=== PATIENT | female | born 1995 ===

== ENCOUNTER 2017-01-09 18:48 | Emergency (ER) | payer BC ==
[2017-01-09 19:01] VITALS: TEMP 98.6
--- NOTE | 2017-01-09 19:42 | C.PDOC ---
History Of Present Illness 21 y/o female presents to the ED requesting test. Pt reports positive home test but wants to confirm it. Pt . Pt denies significant complaints , denies previous hx of , miscarriage, ectopic , abdominal pain, vomiting, vaginal irritation or bleeding, vaginal discharge, fever or any other complaints. Ambulate to ED for evaluation, not in any apparent distress. Time Seen by Provider: 01/09/17 19:15 Chief Complaint (Nursing): Medical Clearance History Per: Patient History/Exam Limitations: no limitations Severity: None Recent travel outside of the [place]: No Past Medical History Reviewed: Historical Data, Nursing Documentation, Vital Signs Vital Signs: Last Vital Signs Temp 98.6 F 01/09/17 18:58 Pulse 114 H 01/09/17 18:58 Resp 20 01/09/17 18:58 BP 122/81 01/09/17 18:58 Pulse Ox 100 01/09/17 19:43 Family History: States: Unknown Family Hx - Social History Hx Alcohol Use: No Hx Substance Use: No - Immunization History Hx Tetanus Toxoid Vaccination: No Hx Influenza Vaccination: No Hx Pneumococcal Vaccination: No Review Of Systems Except As Marked, All Systems Reviewed And Found Negative. Constitutional: Negative for: Fever, Chills Gastrointestinal: Negative for: Vomiting, Abdominal Pain Genitourinary: Negative for: Vaginal Discharge, Vaginal Bleeding Physical Exam - Physical Exam Appears: Well, Non-toxic, No Acute Distress Skin: Warm, Dry, No Rash Head: Normacephalic Eye(s): bilateral: Normal Inspection Nose: Normal Throat: Normal, No Erythema, No Exudate, No Drooling Neck: Normal, Normal ROM, Supple Cardiovascular: Rhythm Regular Respiratory: Normal Breath Sounds, No Rales, No Rhonchi, No Stridor, No Wheezing Gastrointestinal/Abdominal: Normal Exam, Soft, No Tenderness, No Distention, No Guarding, No Rebound Back: Normal Inspection, No CVA Tenderness Extremity: Normal ROM, No Pedal Edema Extremity: Bilateral: Atraumatic Neurological/Psych: Oriented x3, Normal Speech ED Course And Treatment - Laboratory Results Urine POC: Positive O2 Sat by Pulse Oximetry: 100 (on room air) Pulse Ox Interpretation: Normal Progress Note: Urine is positive for . Pt has no active complaints at present time. pt is afebrile, hemodynamicaly stable. Non-toxic. Tolerate Po well in Ed. Abd: benign. back: (-) CVA tenderness. Educate pt on normal course of 1st trimester of . Counseled on signs of threatned / miscarriage, ectopic. Pt referred to [facility] clinic for follow up care. Disposition Counseled Patient/Family Regarding: Studies Performed, Diagnosis, Need For Followup, Rx Given - [facility]position [facility] Disposition: HOME/ ROUTINE Disposition Time: 19:20 Condition: STABLE Additional Instructions: Follow up with OB in 2-3 days for re-evaluation. Return to ED if any worsening or new changes. Prescriptions: Multivit/Folic Acid/I [ Plus] 1 tab PO DAILY #30 tab Instructions: (ED) Print Language: JAPANESE - Clinical Impression Clinical Impression: - PA / STUDENT MINISTRY PASTOR / Resident Statement MD/DO has reviewed & agrees with the documentation as recorded. - Scribe Statement The provider has reviewed the documentation as recorded by the Janny Carrero All medical record entries made by the Abeibe were at my direction and personally dictated by me. I have reviewed the chart and agree that the record accurately reflects my personal performance of the history, physical exam, medical decision making, and the department course for this patient. I have also personally directed, reviewed, and agree with the discharge instructions and disposition.
[2017-01-09 20:09] VITALS: BP 132/78; PULSE 70; RESP 16; O2SAT 98
== END 2017-01-09 20:09 | disposition home or self-care (01) ==
LOC: C.ER 18:48
DX: Z32.01 Encounter for pregnancy test, result positive (principal)

== ENCOUNTER 2017-01-25 19:10 | Emergency (ER) | payer BC ==
[2017-01-25 19:25] VITALS: O2SAT 98
--- NOTE | 2017-01-25 20:44 | C.PDOC ---
History Of Present Illness Patient presents to the ED with complaints of feeling lightheaded and mild abdominal cramping. Patient is . Patient denies any nausea, vomiting, chest pain, or palpitations. Time Seen by Provider: 01/25/17 20:44 Chief Complaint (Nursing): Dizziness/Lightheaded History Per: Patient History/Exam Limitations: no limitations Onset/Duration Of Symptoms: Hrs Current Symptoms Are (Timing): Still Present Severity: Mild Pain Scale Rating Of: 4 Recent travel outside of the [place]: No Past Medical History Reviewed: Historical Data, Nursing Documentation, Vital Signs Vital Signs: Last Vital Signs Temp 98.0 F 01/25/17 19:20 Pulse 75 01/25/17 19:20 Resp 16 01/25/17 19:20 BP 108/73 01/25/17 19:20 Pulse Ox 98 01/25/17 21:12 Family History: States: No Known Family Hx - Social History Hx Alcohol Use: No Hx Substance Use: No - Immunization History Hx Tetanus Toxoid Vaccination: No Hx Influenza Vaccination: No Hx Pneumococcal Vaccination: No Review Of Systems Constitutional: Negative for: Fever, Chills Cardiovascular: Negative for: Chest Pain, Palpitations Gastrointestinal: Negative for: Nausea, Vomiting Neurological: Positive for: Other (lightheadedbess ) Physical Exam - Physical Exam Appears: Non-toxic, No Acute Distress Skin: Warm, Dry Eye(s): bilateral: PERRL, EOMI Neck: Supple Cardiovascular: Rhythm Regular Respiratory: No Accessory Muscle Use, No Rales, No Rhonchi, No Stridor, No Wheezing Gastrointestinal/Abdominal: Soft, No Tenderness, No Distention, No Guarding, No Rebound Extremity: Normal ROM, No Tenderness Neurological/Psych: Oriented x3 ED Course And Treatment - Laboratory Results Result Diagrams: 01/25/17 21:01 01/25/17 21:01 O2 Sat by Pulse Oximetry: 98 Pulse Ox Interpretation: Normal Reevaluation Time: 23:29 Reassessment Condition: Improved Disposition Counseled Patient/Family Regarding: Studies Performed, Diagnosis, Need For Followup - Disposition Referrals: [facility] [Outside] [facility] [Outside] Disposition: HOME/ ROUTINE Disposition Time: 20:44 Condition: FAIR Prescriptions: Nitrofurantoin Macrocrystals [Macrobid] 1 cap PO BID #14 cap Instructions: (ED), Dehydration (DC), Urinary Tract Infection in (ED) Print Language: BULGARIAN - Clinical Impression Clinical Impression: , Dehydration, UTI (urinary tract infection) during - Scribe Statement The provider has reviewed the documentation as recorded by the Scribe Martina Guido All medical record entries made by the Abeibe were at my direction and personally dictated by me. I have reviewed the chart and agree that the record accurately reflects my personal performance of the history, physical exam, medical decision making, and the department course for this patient. I have also personally directed, reviewed, and agree with the discharge instructions and disposition.
[2017-01-25 21:08] LABS: BASO % 0.3 % (0.0-2.0); EOS % 0.5 % (0.0-4.0); HEMATOCRIT 39.9 % (34.0-47.0); LYMPH # 1.7 K/uL (1.0-4.3); LYMPH % 15.5 % (20.0-40.0); MEAN CELL VOLUME 84.9 fL (81.0-99.0); MEAN CORPUSCULAR HEMOGLOBIN 27.2 pg (27.0-31.0); MEAN PLATELET VOLUME 8.1 fL (7.2-11.7); MONO # 0.8 K/uL (0.0-0.8); RED CELL DISTRIBUTION WIDTH 14.1 % (11.5-14.5); WHITE BLOOD COUNT 10.8 K/uL (4.8-10.8)
[2017-01-25 21:18] LABS: CHLORIDE 98 mmol/L (98-107); SODIUM 134 mmol/L (132-148)
[2017-01-25 21:19] LABS: POTASSIUM 4.7 mmol/L (3.6-5.2)
[2017-01-25 21:21] LABS: ALKALINE PHOSPHATASE 49 U/L (38-126); ALT/SGPT 208 U/L (9-52); AST/SGOT 141 U/L (14-36); BILIRUBIN,TOTAL 1.2 mg/dL (0.2-1.3); BLOOD UREA NITROGEN 8 mg/dL (7-17); CALCIUM 8.7 mg/dl (8.6-10.4); CARBON DIOXIDE 22 mmol/L (22-30); GFR AFRICAN-AMERICAN > 60; GLUCOSE,RANDOM 78 mg/dL (65-105); TOTAL PROTEIN 8.6 g/dL (6.3-8.3)
[2017-01-25] MEDS ORDERED: Sodium Chloride 0.9% 2,000 ML IV ONE (21:53)
[2017-01-25 22:02] LABS: RBC URINE 3 /hpf (0-3); URINE BACTERIA FEW (<OCC); URINE BILIRUBIN NEGATIVE (NEGATIVE); URINE BLOOD NEGATIVE (NEGATIVE); URINE GLUCOSE (UA) NORMAL (Normal); URINE KETONE 2+ mg/dL (NEGATIVE); URINE LEUKOCYTE ESTERASE 2+ Leu/uL (Negative); URINE PROTEIN 2+ mg/dL (NEGATIVE); WBC URINE 36 /hpf (0-5)
[2017-01-25 22:04] LABS: URINE COLOR YELLOW (YELLOW)
[2017-01-25 23:39] LABS: INR 1.1
[2017-01-25 23:46] VITALS: BP 95/62; PULSE 83; RESP 18; TEMP 98.9
--- NOTE | 2017-01-26 17:23 | US ---
OB ultrasound 01/25/2017 Transabdominal- transvaginal sonographic evaluation of the uterus performed. Findings: Uterus is anteverted measuring approximately 8.9 x 5.6 x 6.8 Cm. Cervix is closed measuring 3.2 cm. Intrauterine gestational sac: Gestational sac: MSD 2.65 cm = 7 weeks 3 days Yolk sac: .25cm pole: 1.27 cm = 7weeks 3 days Average ultrasound age = 7 weeks 3 days +/-0 weeks 4 days Heart motion: 152 BPM Right ovary measures 3.9 x 1.7 x 2.5 cm right ovary exhibits arterial flow Left ovary measures 2.7 x 2.3 x 2.5 cm . Impression: Single living intrauterine gestation at approximately 7 weeks 3 days +/-0 weeks 4 days
== END 2017-01-25 23:45 | disposition home or self-care (01) ==
LOC: C.ER 19:10
DX: O23.41 Unspecified infection of urinary tract in pregnancy, first trimester (principal); O26.891 Other specified pregnancy related conditions, first trimester; E86.0 Dehydration; Z3A.01 Less than 8 weeks gestation of pregnancy
CPT/HCPCS: 76805; 76817; 80053; 81001; 84702; 84703; 85025; 85610; 85730; 86850; 86900; 96361; 96374; 99285; J2405; J7040

== ENCOUNTER 2017-01-28 21:01 | Emergency (ER) | payer BC ==
--- NOTE | 2017-01-28 22:28 | C.PDOC ---
History Of Present Illness Patient presents to the ED complaining of vomiting since yesterday. Patient is 7 weeks ; 1 para 0. She was seen in the ED on 01/25/17 for similar symptoms and was started on Macrobid. Patient denies fever, abdominal pain, diarrhea, back pain, urinary symptoms, vaginal bleeding or discharge. Time Seen by Provider: 01/28/17 22:28 Chief Complaint (Nursing): GI Problem History Per: Patient History/Exam Limitations: no limitations Onset/Duration Of Symptoms: Days (1) Current Symptoms Are (Timing): Still Present Context: Other Severity: Mild Pain Scale Rating Of: 3 Radiation Of Pain To:: None Quality Of Discomfort: "Pain" Associated Symptoms: Vomiting Exacerbating Factors: None Alleviating Factors: None Last Bowel Movement: Today Recent travel outside of the [place]: No Additional History Per: Patient Abnormal Vaginal Bleeding: No : 1 Para: 0 Past Medical History Reviewed: Historical Data, Nursing Documentation, Vital Signs Vital Signs: Last Vital Signs Temp 98.8 F 01/28/17 23:41 Pulse 74 01/28/17 23:41 Resp 18 01/28/17 23:41 BP 95/59 L 01/28/17 23:41 Pulse Ox 98 01/28/17 23:41 Family History: States: No Known Family Hx - Social History Hx Alcohol Use: No Hx Substance Use: No - Immunization History Hx Tetanus Toxoid Vaccination: No Hx Influenza Vaccination: No Hx Pneumococcal Vaccination: No Review Of Systems Constitutional: Negative for: Fever Gastrointestinal: Positive for: Vomiting. Negative for: Abdominal Pain, Diarrhea Genitourinary: Negative for: Dysuria, Vaginal Discharge, Vaginal Bleeding Musculoskeletal: Negative for: Back Pain Physical Exam - Physical Exam Appears: Non-toxic, No Acute Distress Skin: Warm, Dry Head: Atraumatic, Normacephalic Eye(s): bilateral: EOMI Oral Mucosa: Moist Neck: Supple Chest: Symmetrical Cardiovascular: Rhythm Regular Respiratory: No Rales, No Rhonchi, No Wheezing Gastrointestinal/Abdominal: Soft, No Guarding, No Rebound, Other (mild suprapubic discomfort) Back: No CVA Tenderness Extremity: Bilateral: Atraumatic, Normal Color And Temperature Neurological/Psych: Oriented x3, Normal Speech, Normal Cognition Gait: Steady ED Course And Treatment - Laboratory Results Result Diagrams: 01/28/17 22:42 01/28/17 22:42 O2 Sat by Pulse Oximetry: 100 (room air) Pulse Ox Interpretation: Normal Progress Note: Plan: -Macrobid, Reglan, IV fluids. -Labs Reevaluation Time: 00:49 Reassessment Condition: Improved Disposition Counseled Patient/Family Regarding: Studies Performed, Diagnosis, Need For Followup, Rx Given - Disposition Referrals: [facility] [Outside] [facility] [Outside] Disposition: HOME/ ROUTINE Disposition Time: 22:28 Condition: FAIR Additional Instructions: Please finish the antibiotics for the urinary tract infection Prescriptions: Metoclopramide [Reglan] 1 tab PO TID PRN #25 tab PRN Reason: Nausea/Vomiting Instructions: Hyperemesis Gravidarum (ED), Urinary Tract Infection in (ED) Print Language: ESTONIAN - Clinical Impression Clinical Impression: UTI (urinary tract infection) during , Hyperemesis gravidarum - Scribe Statement The provider has reviewed the documentation as recorded by the Abeibalvaro Bardales Provider Attestation: All medical record entries made by the Abeibalvaro were at my direction and personally dictated by me. I have reviewed the chart and agree that the record accurately reflects my personal performance of the history, physical exam, medical decision making, and the department course for this patient. I have also personally directed, reviewed, and agree with the discharge instructions and disposition.
[2017-01-28 22:29] VITALS: BMI 33.6
[2017-01-28] MEDS ORDERED: Sodium Chloride 0.9% 1,000 ML IV ONE (22:29)
[2017-01-28] MEDS ORDERED: Sodium Chloride 0.9% 1,000 ML ONE (22:43)
[2017-01-28 22:48] LABS: BASO % 0.4 % (0.0-2.0); EOS % 0.2 % (0.0-4.0); HEMATOCRIT 38.1 % (34.0-47.0); LYMPH # 1.4 K/uL (1.0-4.3); LYMPH % 12.3 % (20.0-40.0); MEAN CORPUSCULAR HEMOGLOBIN 27.4 pg (27.0-31.0); MEAN CORPUSCULAR HGB CONC 32.6 g/dL (33.0-37.0); MEAN PLATELET VOLUME 7.8 fL (7.2-11.7); MONO # 0.8 K/uL (0.0-0.8); MONO % 7.2 % (0.0-10.0); RED CELL DISTRIBUTION WIDTH 13.7 % (11.5-14.5); WHITE BLOOD COUNT 11.2 K/uL (4.8-10.8)
[2017-01-28 22:55] LABS: RBC URINE 8 /hpf (0-3); URINE BACTERIA MOD (<OCC); URINE BILIRUBIN NEGATIVE (NEGATIVE); URINE COLOR Amber (YELLOW); URINE GLUCOSE (UA) NORMAL (Normal); URINE HYALINE CAST 0-2 /lpf (0-2); URINE KETONE 2+ mg/dL (NEGATIVE); URINE PROTEIN 2+ mg/dL (NEGATIVE); WBC URINE 17 /hpf (0-5)
[2017-01-28 22:57] LABS: CHLORIDE 98 mmol/L (98-107); POTASSIUM 4.1 mmol/L (3.6-5.2); SODIUM 134 mmol/L (132-148); URINE BLOOD 1+ (NEGATIVE); URINE LEUKOCYTE ESTERASE 2+ Leu/uL (Negative)
[2017-01-28 22:59] LABS: ALB/GLOB RATIO 1.1 (1.0-2.1); ALKALINE PHOSPHATASE 50 U/L (38-126); AST/SGOT 32 U/L (14-36); BILIRUBIN,TOTAL 1.1 mg/dL (0.2-1.3); BLOOD UREA NITROGEN 7 mg/dL (7-17); CARBON DIOXIDE 24 mmol/L (22-30); GFR AFRICAN-AMERICAN > 60; TOTAL PROTEIN 8.1 g/dL (6.3-8.3)
[2017-01-28 23:00] LABS: ALT/SGPT 109 U/L (9-52); CALCIUM 8.9 mg/dl (8.6-10.4); GLUCOSE,RANDOM 88 mg/dL (65-105)
[2017-01-28] MEDS ORDERED: Sodium Chloride 0.9% 50 ML IV ONE (23:09)
[2017-01-28 23:42] VITALS: BP 95/59; RESP 18
[2017-01-29 00:54] VITALS: O2SAT 100
[2017-01-29 01:11] VITALS: PULSE 65; TEMP 98.9
== END 2017-01-29 01:05 | disposition home or self-care (01) ==
LOC: C.ER 21:01
DX: O23.41 Unspecified infection of urinary tract in pregnancy, first trimester (principal); Z3A.01 Less than 8 weeks gestation of pregnancy; O21.0 Mild hyperemesis gravidarum
CPT/HCPCS: 80053; 81001; 83690; 85025; 96361; 96374; 99285; J2765; J7040

== ENCOUNTER 2017-02-16 18:53 | Emergency (ER) | payer SELFPAY ==
[2017-02-16 18:53] VITALS: BMI 33.6
[2017-02-16 19:01] VITALS: O2SAT 99
[2017-02-16] MEDS ORDERED: Sodium Chloride 0.9% 1,000 ML IV ONE (19:25)
[2017-02-16] MEDS ORDERED: Sodium Chloride 0.9% 500 ML IV ONE (19:25)
--- NOTE | 2017-02-16 19:32 | C.PDOC ---
History Of Present Illness A 21 y/o female who is 13 weeks presents to the ER c/o abdominal pain for 3 days. Patient notes nausea and vomiting but denies fever, chills, diarrhea , vaginal discharge, dysuria, hematuria, or any other complaints. Chief Complaint (Nursing): Abdominal Pain History Per: Patient History/Exam Limitations: no limitations Onset/Duration Of Symptoms: Days Current Symptoms Are (Timing): Still Present Severity: Mild Location Of Pain/Discomfort: RUQ, RLQ Associated Symptoms: Nausea, Vomiting. denies: Diarrhea Additional History Per: Patient Past Medical History Reviewed: Historical Data, Nursing Documentation, Vital Signs Vital Signs: Last Vital Signs Temp 98 F 02/16/17 18:58 Pulse 80 02/16/17 18:58 Resp 18 02/16/17 18:58 BP 118/77 02/16/17 18:58 Pulse Ox 99 02/16/17 19:36 Family History: States: Unknown Family Hx - Social History Hx Alcohol Use: No Hx Substance Use: No - Immunization History Hx Tetanus Toxoid Vaccination: No Hx Influenza Vaccination: No Hx Pneumococcal Vaccination: No Review Of Systems Except As Marked, All Systems Reviewed And Found Negative. Constitutional: Negative for: Fever, Chills Gastrointestinal: Positive for: Nausea, Vomiting, Abdominal Pain (Right sided abdominal pain). Negative for: Diarrhea Genitourinary: Negative for: Dysuria, Hematuria, Vaginal Discharge Physical Exam - Physical Exam Appears: Non-toxic, In Acute Distress (Mild distress) Skin: Warm, Dry Head: Atraumatic, Normacephalic Eye(s): bilateral: Normal Inspection, EOMI Cardiovascular: Rhythm Regular, No Murmur Respiratory: Normal Breath Sounds, No Rales, No Rhonchi, No Wheezing Gastrointestinal/Abdominal: Soft, Tenderness (RUQ and RLQ. No epigastric tendernes), No Guarding, No Rebound Pelvic: No Vaginal Bleeding, No Vaginal Discharge Neurological/Psych: Oriented x3, Normal Speech, Normal Cognition ED Course And Treatment - Laboratory Results Result Diagrams: 02/16/17 19:43 02/16/17 19:43 O2 Sat by Pulse Oximetry: 99 (RA) Pulse Ox Interpretation: Normal Medical Decision Making Medical Decision Making: Impression: 21 y/o 13 weeks female c/o abdominal pain for 3 days Plans: -Blood labs -Pepcid -Zofran -IV fluids -UA -US abd -Reassess and disposition Patient is resting comfortably, abdomen remains soft, and patient is tolerating PO. Patient feels comfortable going home. Patient will be discharged home. Disposition Counseled Patient/Family Regarding: Diagnosis - Disposition Referrals: [facility] [Outside] Disposition: HOME/ ROUTINE Disposition Time: 22:06 Condition: STABLE Prescriptions: Acetaminophen [Tylenol 325mg tab] 650 mg PO Q4 #30 tab Ondansetron ODT [Zofran ODT] 1 odt PO BID PRN #6 odt PRN Reason: Nausea/Vomiting Instructions: Gallstones (ED), Biliary Colic (GEN), (ED) Forms: Gen Discharge Inst Sami Print Language: STATELESS - POA Present On Arrival: None - Clinical Impression Clinical Impression: Abdominal pain, Gall bladder stones, Gall bladder pain, - Scribe Statement The provider has reviewed the documentation as recorded by the Scribe Candace ritchie All medical record entries made by the Scribe were at my direction and personally dictated by me. I have reviewed the chart and agree that the record accurately reflects my personal performance of the history, physical exam, medical decision making, and the department course for this patient. I have also personally directed, reviewed, and agree with the discharge instructions and disposition.
[2017-02-16 19:46] LABS: BASO % 0.3 % (0.0-2.0); EOS % 0.3 % (0.0-4.0); HEMATOCRIT 40.3 % (34.0-47.0); LYMPH % 12.6 % (20.0-40.0); MEAN CELL VOLUME 84.6 fL (81.0-99.0); MEAN CORPUSCULAR HEMOGLOBIN 27.4 pg (27.0-31.0); MEAN CORPUSCULAR HGB CONC 32.4 g/dL (33.0-37.0); MEAN PLATELET VOLUME 7.7 fL (7.2-11.7); MONO # 0.7 K/uL (0.0-0.8); MONO % 8.3 % (0.0-10.0); WHITE BLOOD COUNT 8.1 K/uL (4.8-10.8)
[2017-02-16] MEDS ORDERED: Sodium Chloride 0.9% 2,000 ML ONE (19:55)
[2017-02-16 20:03] LABS: CHLORIDE 96 mmol/L (98-107); POTASSIUM 3.7 mmol/L (3.6-5.2); SODIUM 135 mmol/L (132-148)
[2017-02-16 20:05] LABS: AST/SGOT 94 U/L (14-36); BILIRUBIN,TOTAL 2.5 mg/dL (0.2-1.3); CARBON DIOXIDE 24 mmol/L (22-30); GFR AFRICAN-AMERICAN > 60; TOTAL PROTEIN 8.5 g/dL (6.3-8.3)
[2017-02-16 20:06] LABS: ALKALINE PHOSPHATASE 64 U/L (38-126); ALT/SGPT 179 U/L (9-52); BLOOD UREA NITROGEN 8 mg/dL (7-17); CALCIUM 9.2 mg/dl (8.6-10.4); GLUCOSE,RANDOM 85 mg/dL (65-105)
[2017-02-16 22:26] VITALS: BP 118/78; PULSE 89; RESP 20; TEMP 98.4
--- NOTE | 2017-02-17 11:27 | US ---
PROCEDURE: OB Pelvic Ultrasound HISTORY: 10 weeks bed 13 COMPARISON: Comparison is made to the previous study dated 01/25/2017 FINDINGS: LMP: 12/04/2016 UTERUS: Gestational sac: Single intrauterine gestation. Heart rate: 171 bpm. age (Ultrasound estimated): In 9 weeks 6 days +/- 0 weeks 5 days Tawnya-gestational hemorrhage: None. Date of delivery (Ultrasound estimated) : 09/15/2017 Uterus measures 9.8 x 7.2 x 7.9 cm. Normal in size and appearance. The cervix closed measures 3.9 centimeter. CERVIX: Long and closed. No cervical abnormality seen. RIGHT OVARY: Was not visualized. LEFT OVARY: Measures 2.9 x 2 x 3.1 cm. No solid mass. Normal flow. FREE FLUID: None. OTHER FINDINGS: None. IMPRESSION: Single intrauterine live with ultrasound estimated gestational age of 9 weeks 6 days +/- 0 weeks 5 days. Estimated date of delivery by ultrasound is 09/15/2017. The right ovary was not visualized in this study. Preliminary report was submitted by [facility].
--- NOTE | 2017-02-17 11:30 | US ---
HISTORY: Upper abd and RLQ abdominal pain COMPARISON: None. TECHNIQUE: Sonographic evaluation of the abdomen. FINDINGS: LIVER: Measures 15 cm. Heterogeneous mild increase echogenicity of the liver parenchyma. No mass. No intrahepatic bile duct dilatation. GALLBLADDER: Cholelithiasis without evidence of acute cholecystitis. COMMON BILE DUCT: Measures 2.4 mm. No stones. No dilatation. PANCREAS: Unremarkable as visualized. No mass. No ductal dilatation. RIGHT KIDNEY: Measures 9.9 x 3.6 x 4.2cm. Normal echogenicity. No calculus, mass, or hydronephrosis. LEFT KIDNEY: Measures 10.3 x 4.6 x 3.9cm. Normal echogenicity. No calculus, mass, or hydronephrosis. SPLEEN: Normal in size and contour. No mass. AORTA: No aneurysmal dilatation. IVC: Unremarkable. OTHER FINDINGS: None. IMPRESSION: Cholelithiasis without ultrasound evidence of acute cholecystitis. Mildly echogenic liver suggestive of mild steatosis. Preliminary report was submitted by [facility].
== END 2017-02-16 22:26 | disposition home or self-care (01) ==
LOC: C.ER 18:53
DX: O26.91 Pregnancy related conditions, unspecified, first trimester (principal); Z3A.09 9 weeks gestation of pregnancy; K80.20 Calculus of gallbladder without cholecystitis without obstruction; R10.9 Unspecified abdominal pain
CPT/HCPCS: 76700; 76801; 80053; 83690; 84702; 85025; 96361; 96374; 96375; 99284; J2405; J7040

== ENCOUNTER 2017-02-28 20:30 | Emergency (ER) | payer SELFPAY ==
[2017-02-28 20:30] VITALS: BMI 33.6
[2017-02-28 20:52] VITALS: RESP 18; O2SAT 100
[2017-02-28] MEDS ORDERED: Sodium Chloride 0.9% 1,000 ML IV ONE (21:21)
[2017-02-28 21:30] LABS: RBC URINE 7 /hpf (0-3); TRANSITIONAL EPITHIAL < 1 /hpf (0-3); URINE BACTERIA RARE (<OCC); URINE BILIRUBIN 1+ (NEGATIVE); URINE BLOOD 1+ (NEGATIVE); URINE COLOR Amber (YELLOW); URINE GLUCOSE (UA) NORMAL (Normal); URINE HYALINE CAST 0-2 /lpf (0-2); URINE KETONE 2+ mg/dL (NEGATIVE); URINE LEUKOCYTE ESTERASE 2+ Leu/uL (Negative); URINE PROTEIN 2+ mg/dL (NEGATIVE); WBC URINE 20 /hpf (0-5)
[2017-02-28 21:36] LABS: BASO % 0.3 % (0.0-2.0); EOS % 0.4 % (0.0-4.0); LYMPH # 0.5 K/uL (1.0-4.3); LYMPH % 11.9 % (20.0-40.0); MEAN CELL VOLUME 83.7 fL (81.0-99.0); MEAN CORPUSCULAR HEMOGLOBIN 28.2 pg (27.0-31.0); MEAN CORPUSCULAR HGB CONC 33.7 g/dL (33.0-37.0); MONO # 0.5 K/uL (0.0-0.8); MONO % 11.6 % (0.0-10.0); NRBC % 0.1 % (0.0-2.0); RED CELL DISTRIBUTION WIDTH 14.5 % (11.5-14.5); WHITE BLOOD COUNT 4.3 K/uL (4.8-10.8)
[2017-02-28] MEDS ORDERED: Sodium Chloride 0.9% 1,000 ML ONE (21:37)
--- NOTE | 2017-02-28 21:37 | C.PDOC ---
History Of Present Illness 21 y/o female presents to the ED with complains of RUQ discomfort x2 days. Pt , history of biliary colic and gallstones. Pt seen here 02/16/17, normal noted on US showing IUP 9 weeks 6 days. Denies fever, chills, vomiting , diarrhea or any other complaints. Time Seen by Provider: 02/28/17 21:14 Chief Complaint (Nursing): GI Problem History Per: Patient History/Exam Limitations: no limitations Onset/Duration Of Symptoms: Days Current Symptoms Are (Timing): Still Present Severity: Mild Quality Of Discomfort: "Pain" Associated Symptoms: denies: Fever, Chills, Nausea, Vomiting Alleviating Factors: None Recent travel outside of the [place]: No Abnormal Vaginal Bleeding: No Past Medical History Reviewed: Historical Data, Nursing Documentation, Vital Signs Vital Signs: Last Vital Signs Temp 99.1 F 02/28/17 20:49 Pulse 72 02/28/17 20:49 Resp 18 02/28/17 20:49 BP 115/56 L 02/28/17 20:49 Pulse Ox 100 02/28/17 21:38 Family History: States: Unknown Family Hx - Social History Hx Alcohol Use: No Hx Substance Use: No - Immunization History Hx Tetanus Toxoid Vaccination: No Hx Influenza Vaccination: No Hx Pneumococcal Vaccination: No Review Of Systems Except As Marked, All Systems Reviewed And Found Negative. Constitutional: Negative for: Fever, Chills Gastrointestinal: Positive for: Abdominal Pain. Negative for: Nausea, Vomiting , Diarrhea Genitourinary: Negative for: Vaginal Discharge, Vaginal Bleeding Physical Exam - Physical Exam Appears: Non-toxic, No Acute Distress, Other (obese female) Skin: Warm, Dry, No Rash Head: Atraumatic, Normacephalic Neck: Normal, Normal ROM, Supple Chest: Symmetrical Cardiovascular: Rhythm Regular, No Murmur Respiratory: Normal Breath Sounds, No Rales, No Rhonchi, No Wheezing Gastrointestinal/Abdominal: Normal Exam, Soft, No Tenderness Extremity: Bilateral: Atraumatic Neurological/Psych: Oriented x3, Normal Speech ED Course And Treatment - Laboratory Results Result Diagrams: 02/28/17 21:28 02/28/17 21:28 Lab Interpretation: Abnormal (mild elev LFT's. total bili 1.4, UA 20 WBC's) Urine POC: Positive O2 Sat by Pulse Oximetry: 100 (room air) Pulse Ox Interpretation: Normal - Other Rad GB US X-Ray: Interpreted by Me (GB stones, no obst/thickening, no sonographic callejas's ), Read By Radiologist Reevaluation Time: 22:36 Reassessment Condition: Improved Medical Decision Making Medical Decision Making: consider passed stone (but alk phos would be elev and CBD would be dilated) or fatty liver or constipation UTI in preg preg US not repeated as normal IUP 02/16 @ 9W6D and no lower abd discomforts. Disposition Doctor Will See Patient In The: Office Counseled Patient/Family Regarding: Studies Performed, Diagnosis - Disposition Referrals: Poly Anderson MD [Primary Care Provider] - Disposition Time: 22:37 Condition: GOOD - Clinical Impression Clinical Impression: UTI (urinary tract infection) during , with epigastric pain , antepartum - Scribe Statement The provider has reviewed the documentation as recorded by the Janny Carrero Provider Attestation: All medical record entries made by the Janny were at my direction and personally dictated by me. I have reviewed the chart and agree that the record accurately reflects my personal performance of the history, physical exam, medical decision making, and the department course for this patient. I have also personally directed, reviewed, and agree with the discharge instructions and disposition.
[2017-02-28 21:43] LABS: CHLORIDE 95 mmol/L (98-107); SODIUM 131 mmol/L (132-148)
[2017-02-28 21:45] LABS: AST/SGOT 105 U/L (14-36); BILIRUBIN,TOTAL 1.4 mg/dL (0.2-1.3); CARBON DIOXIDE 24 mmol/L (22-30); GFR AFRICAN-AMERICAN > 60
[2017-02-28 21:46] LABS: ALB/GLOB RATIO 1.1 (1.0-2.1); ALKALINE PHOSPHATASE 73 U/L (38-126); ALT/SGPT 236 U/L (9-52); BLOOD UREA NITROGEN 6 mg/dL (7-17); CALCIUM 8.8 mg/dl (8.6-10.4); GLUCOSE,RANDOM 86 mg/dL (65-105); TOTAL PROTEIN 7.9 g/dL (6.3-8.3)
[2017-02-28 22:51] VITALS: BP 102/64; PULSE 68; TEMP 98.3
--- NOTE | 2017-03-01 07:00 | US ---
Right upper quadrant abdominal ultrasound History: Right upper quadrant abdominal pain. Comparison: None available. Technique: Real-time sonography was performed through the right upper quadrant of the abdomen. Findings: Liver: 15 centimeters length. Mild increased echogenicity of the hepatic parenchyma suggestive for mild fatty infiltration versus mild hepatic parenchymal disease. Clinical correlation. Gallbladder: Cholelithiasis. Normal wall thickness of 2 millimeters. No wall edema. Negative sonographic Terrazas's sign. Common bile duct measures 2.1 millimeters, within normal limits. Limited visualization of the pancreas. Visualized aorta and IVC are preserved. Right kidney: 9.5 x 3.6 x 5.2 centimeters. No calculi or hydronephrosis. Impression: Cholelithiasis. Normal wall thickness of 2.0 millimeters. Negative sonographic Terrazas's sign. Mild increased echogenicity of the hepatic parenchyma which may represent mild fatty infiltration versus hepatic parenchymal disease. Clinical correlation. Limited visualization of the pancreas. These findings were preliminarily reported at 10:52 p.m. on 02/28/[address] Josefa Dominguez from [facility].
== END 2017-02-28 22:52 | disposition home or self-care (01) ==
LOC: SUPCPDRO 20:30 → C.ER 20:30
DX: O23.41 Unspecified infection of urinary tract in pregnancy, first trimester (principal); Z3A.09 9 weeks gestation of pregnancy
CPT/HCPCS: 76705; 80053; 81001; 83690; 84703; 85025; 96361; 96374; 96375; 99285; J2405; J7040